=== PATIENT | female | born 1950 | race Caucasian/White ===

== ENCOUNTER 2021-05-18 11:09 | Day surgery (SDC) | payer MEDICARE, BC ==
[2021-05-18] MEDS ORDERED: BUPIVACAINE 0.5% VIAL IJ ONE (11:10)
[2021-05-18] MEDS ORDERED: Depo-Medrol 40 MG/ML IM ONE (11:10)
[2021-05-18] MEDS ORDERED: DIPRIVAN 200 MG/20 ML IV ONE (11:43)
[2021-05-18] MEDS ORDERED: Lactated Ringers 1,000 ML IV ONE (13:17)
--- NOTE | 2021-05-18 13:32 | XRAY ---
Indication: Left greater trochanter bursa injection. Intraoperative fluoroscopy provided for 10 seconds. Single digital spot image submitted for interpretation demonstrates needle tip projecting lateral to the left greater trochanter. Small amount of contrast injected for needle tip placement. Correlate with intraoperative findings/report.
--- NOTE | 2021-05-18 13:32 | XRAY ---
Indication: Right SI joint injection. Intraoperative fluoroscopy provided for 10 seconds. Single lateral digital spot image submitted for interpretation demonstrates posterior needle tip projecting mid sacrum. Correlate with intraoperative findings/report.
--- NOTE | 2021-05-18 13:39 | XRAY ---
7 seconds fluoroscopy time in surgery for injection of the right SI joint.
--- NOTE | 2021-05-18 13:39 | XRAY ---
10 seconds fluoroscopy time in surgery for injection of the greater trochanter of the right hip.
== END 2021-05-18 12:05 | disposition home or self-care (01) ==
LOC: SDC-PAIN 11:09
PROVIDERS: ATTEND Psychiatry & Neurology Pain Medicine
DX: M46.1 Sacroiliitis, not elsewhere classified (principal); M70.61 Trochanteric bursitis, right hip; Z79.899 Other long term (current) drug therapy
CPT/HCPCS: 20610; 27096; 72020; 73501; 77002; 77003; G0260; 99100; J1030; J2704; Q9966

== ENCOUNTER 2021-06-14 12:08 | Emergency (ER) | payer MEDICARE, BC ==
[2021-06-14] MEDS ORDERED: TYLENOL 325 MG PO ONE (12:20)
[2021-06-14 12:22] VITALS: O2SAT 94
[2021-06-14] MEDS ORDERED: TYLENOL 325 MG ONE (12:34)
--- NOTE | 2021-06-14 12:41 | ERPHSYRPT ---
- History of Present Illness Time Seen by Provider: 06/14/21 12:13 Source: patient Exam Limitations: no limitations Patient Subjective Stated Complaint: right hip pain and is a pt with Dr. Ryan for [facility] chronic pain Triage Nursing Assessment: Pt was brought to the ER by her , wilfred swann, rates pain as 10/10, last injection from Dr. Ryan was on the 8th of last month, pt went to a chiropractor a couple of weeks ago and they popped her hip but it continued to hurt, pulses normal, skin n/w/d, doesn't appear to be in any distress Physician History: Patient is a 71-year-old female with a history of chronic SI pain presents to our ED with complaints of progressive worsening right hip pain that has been present for over [address] Ryan pain specialist. She receives injections for SI joint pain. Patient states her right hip is now hurting her and becoming problematic. Patient saw a chiropractor approximately 1 week ago. Patient states chiropractor manipulated her right hip however her pain continues. No injuries. No falls. No fever. No trauma. Pain worse with weightbearing and improved with rest. Patient denies associated chest pain. No shortness of breath. No nausea or vomiting. No diarrhea. No rash. No active back pain. She voices no other complaints concerns at this time. Method of Injury: unknown (Chronic use) Occurred: other (No acute injury reported.) Quality: constant Severity of Pain-Max: moderate Severity of Pain-Current: mild Lower Extremities Pain: hip: right Modifying Factors: Improves With: other (Weightbearing worsens pain.) Associated Symptoms: none Allergies/Adverse Reactions: cimetidine [From Tagamet] Allergy (Verified 06/14/21 12:24) sulfamethoxazole [From Bactrim] Allergy (Verified 06/14/21 12:25) trimethoprim [From Bactrim] Allergy (Verified 06/14/21 12:25) nifedipine [From Procardia] Adverse Reaction (Verified 06/14/21 12:24) Home Medications: Bethanechol Chloride 25 mg PO TID 06/14/21 [History] Buspirone HCl [Buspar] 10 mg PO DAILY 06/14/21 [History] Carvedilol 12.5 mg [Coreg 12.5 mg] 12.5 mg PO BID 06/14/21 [History] Clonidine HCl 0.1 mg [Catapres 0.1 MG] 0.1 mg PO DAILY 06/14/21 [History] Denosumab 60 mg [Prolia 60 mg Injection] 60 mg SQ UD 06/14/21 [History] Esomeprazole Magnesium 20 mg PO DAILY 06/14/21 [History] Gabapentin 600 mg PO TID 06/14/21 [History] Levothyroxine Sodium 125 mcg PO DAILY 06/14/21 [History] Potassium Chloride 10 Meq Tab* [Klor Con 10 MEQ] 10 meq PO DAILY 06/14/21 [History] Spironolactone 25 mg [Aldactone 25 MG] 25 mg PO DAILY 06/14/21 [History] Tramadol HCl 50 mg [Ultram 50 mg] 50 mg PO UD 06/14/21 [History] Travel Risk - International Travel Have you traveled outside of the country in past 3 weeks: No - Coronavirus Screening Are you exhibiting any of the following symptoms?: No Close contact with a COVID-19 positive Pt in past 14-21 Days: No - Vaccine Status Have you recieved a Covid-19 vaccination: Yes [employer] T[employer]: [place] - Review of Systems Constitutional: No Symptoms, No Fever, No Chills Eyes: No Symptoms Ears, Nose, & Throat: No Symptoms Respiratory: No Symptoms, No Cough, No Dyspnea Cardiac: No Symptoms, No Chest Pain, No Edema, No Syncope Abdominal/Gastrointestinal: No Symptoms, No Abdominal Pain, No Nausea, No Vomiting, No Diarrhea Genitourinary Symptoms: No Symptoms, No Dysuria Musculoskeletal: No Symptoms, No Back Pain, No Neck Pain Skin: No Symptoms, No Rash Neurological: No Symptoms, No Dizziness, No Focal Weakness, No Sensory Changes Psychological: No Symptoms Endocrine: No Symptoms Hematologic/Lymphatic: No Symptoms Immunological/Allergic: No Symptoms All Other Systems: Reviewed and Negative - Past Medical History Pertinent Past Medical History: Yes Cardiac History: High Cholesterol, Hypertension Endocrine Medical History: Hypothyroidism - Past Surgical History Past Surgical History: Yes Female Surgical History: Hysterectomy, Tubal Ligation Other Surgical History: neck surgery, lipoma from the colon, back surgery, foot surgery - Social History Smoking Status: Never smoker Exposure to second hand smoke: No Drug Use: none Patient Lives Alone: No - Nursing Vital Signs Nursing Vital Signs: Initial Vital Signs Temperature 97.1 F 06/14/21 12:12 Pulse Rate 62 06/14/21 12:12 Blood Pressure 138/73 06/14/21 12:12 O2 Sat by Pulse Oximetry 94 L 06/14/21 12:12 Pain Scale Pain Intensity 6 - Physical Exam General Appearance: no apparent distress, alert Eyes, Ears, Nose, Throat Exam: moist mucous membranes Neck Exam: non-tender, supple Cardiovascular/Respiratory Exam: chest non-tender, normal breath sounds, regular rate/rhythm, no respiratory distress Gastrointestinal/Abdominal Exam: non-tender, soft, guarding, No tenderness Back Exam: normal inspection, No vertebral tenderness Hips Exam: right: pain, other (Right hip pain upon weightbearing. Overlying soft tissue intact. No cellulitis erythema or obvious tenderness. Pain worse with weightbearing. Extremities neurovascular intact distally. Compartments are soft. Cap refill less than 2 seconds. PT DP pulses palpable, straight leg raise worsens patient's hip pain as well.), left: non-tender, normal inspection, normal range of motion, no evidence of injury Legs Exam: bilateral leg: non-tender, normal inspection, normal range of motion, no evidence of injury Knees Exam: bilateral knee: non-tender, normal inspection, normal range of motion, no evidence of injury Ankle Exam: bilateral ankle: non-tender, normal inspection, normal range of motion, no evidence of injury Foot Exam: bilateral foot: non-tender, normal inspection, normal range of motion, no evidence of injury Neuro/Tendon Exam: normal sensation, normal motor functions, normal tendon functions Mental Status Exam: alert, oriented x 3, cooperative Skin Exam: normal color, warm, dry SpO2 Interpretation: normal SpO2: 94 O2 Delivery: Room Air - Course Nursing assessment & vital signs reviewed: Yes - Radiology Exams Hip X-ray Interpretation: Teleradiologist Report (2 views right hip demonstrates minimal joint space narrowing, right lumbosacral junction facet screw, minimal vascular calcifications. No other bony articular or soft tissue abnormalities.) Ordered Tests: Active Orders 24 hr Category Date Time Status HIP UNI (2V) INCL PEL IF DONE Stat Exams 06/14/21 12:20 Completed Medication Summary Discontinued Medications Generic Name Dose Route Start Last Admin Trade Name Freq PRN Reason Stop Dose Admin Acetaminophen 975 mg 06/14/21 12:20 06/14/21 12:34 Tylenol 325 Mg PO 06/14/21 12:21 975 mg STAT ONE Administration Acetaminophen Confirm 06/14/21 12:34 Tylenol 325 Mg Administered 06/14/21 12:35 Dose 975 mg .ROUTE .STK-MED ONE - Progress Progress: improved Progress Note: Patient reassessed. Pain improved. However patient still has some discomfort. We will add Toradol IM for pain control. X-ray negative for fracture dislocation. Patient has an appointment scheduled with her pain specialist tomorrow. She will follow-up as scheduled. Patient states she is ready for discharge. Will discharge home. Patient voiced other complaints or concerns at this time. Patient states she has a cane at home which she does not use frequently. Patient will start using it at least for the time being until her right hip pain improves. Portions of this note were created with voice recognition technology. There may be grammatical, spelling, punctuation or sound alike errors 06/14/21 13:12 Counseled pt/family regarding: diagnosis, need for follow-up, rad results - Departure Departure Disposition: Home Clinical Impression: Hip pain, right Condition: Stable Critical Care Time: No Referrals: DINAH POTTER [Primary Care Provider] - Additional Instructions: Discharge/Care Plan AMELIE SHORE was seen on 06/14/21 in the Emergency Room. The patient was counseled regarding Diagnosis,Lab results, Imaging studies, need for follow up and when to return to the Emergency Room. Prescriptions given: Discharge Note I have spoken with the patient and/or caregivers. I have explained the patient's condition, diagnosis and treatment plan based on the information available to me at this time. I have answered the patient's and/or caregiver's questions and addressed any concerns. The patient and/or caregivers have as good understanding of the patient's diagnosis, condition and treatment plan as can be expected at this point. The vital signs have been stable. The patient's condition is stable and appropriate for discharge from the emergency department. The patient will pursue further outpatient evaluation with the primary care physician or other designated or consulting physician as outlined in the discharge instructions. The patient and/or caregivers are agreeable to this plan of care and follow-up instructions have been explained in detail. The patient and/or caregivers have received these instruction. The patient/and or caregivers are aware that any significant change in condition or worsening of symptoms should prompt an immediate return to this or the closest emergency department or call 911.
--- NOTE | 2021-06-14 13:03 | XRAY ---
Indication: Right pelvis pain radiating into groin. Comparison: None 2 view right hip demonstrates minimal joint space narrowing, right lumbosacral junction facet screw, and minimal vascular calcifications. No other bony, articular, or soft tissue abnormalities.
[2021-06-14 13:07] VITALS: BP 127/65; PULSE 61
[2021-06-14] MEDS ORDERED: TORAdol 30 mg Injection IM ONE (13:10)
[2021-06-14] MEDS ORDERED: TORAdol 30 mg Injection ONE (13:11)
== END 2021-06-14 13:24 | disposition home or self-care (01) ==
LOC: ED 12:08
DX: M25.551 Pain in right hip (principal); G89.29 Other chronic pain; Z79.899 Other long term (current) drug therapy; F45.42 Pain disorder with related psychological factors
CPT/HCPCS: 73502; 96372; 99284; J1885; A9270-GY

== ENCOUNTER 2021-06-22 14:42 | Day surgery (SDC) | payer MEDICARE, BC ==
[2021-06-22] MEDS ORDERED: BUPIVACAINE 0.5% VIAL IJ ONE (14:43)
[2021-06-22] MEDS ORDERED: Depo-Medrol 40 MG/ML IM ONE (14:43)
[2021-06-22] MEDS ORDERED: DIPRIVAN 200 MG/20 ML IV ONE (17:27)
[2021-06-22] MEDS ORDERED: Lactated Ringers 1,000 ML IV ONE (18:21)
--- NOTE | 2021-06-22 21:21 | XRAY ---
Indication: Right greater trochanteric bursa injection. Intraoperative fluoroscopy provided for 9 seconds. Single digital spot image obtained prone submitted for interpretation demonstrates needle tip lateral to the right greater trochanter. Small amount of contrast injected for needle tip placement. Correlate with intraoperative findings/report.
--- NOTE | 2021-06-22 21:24 | XRAY ---
Indication: Right SI joint injection. Intraoperative fluoroscopy provided for 14 seconds. 2 digital spot image submitted for interpretation demonstrates posterior needle tip projecting over the inferior right SI joint. Correlate with intraoperative findings/report.
--- NOTE | 2021-06-23 09:00 | XRAY ---
9 seconds fluoroscopy time in surgery for injection of the right greater trochanteric bursa of the right hip.
--- NOTE | 2021-06-23 09:11 | XRAY ---
14 seconds fluoroscopy time in surgery for injection of the right SI joint.
== END 2021-06-22 17:55 | disposition home or self-care (01) ==
LOC: SDC-PAIN 14:42
PROVIDERS: ATTEND Psychiatry & Neurology Pain Medicine
DX: M46.1 Sacroiliitis, not elsewhere classified (principal); Z79.899 Other long term (current) drug therapy
CPT/HCPCS: 20610; 27096; 72020; 73501; 77002; G0260; 99100; J1030; J2704; Q9966

== ENCOUNTER 2021-08-24 06:14 | Day surgery (SDC) | payer MEDICARE, BC ==
[2021-08-24] MEDS ORDERED: BUPIVACAINE 0.5% VIAL IJ ONE (06:15)
[2021-08-24] MEDS ORDERED: Depo-Medrol 40 MG/ML IM ONE (06:15)
[2021-08-24] MEDS ORDERED: DIPRIVAN 200 MG/20 ML IV ONE (08:38)
[2021-08-24] MEDS ORDERED: Lactated Ringers 1,000 ML IV ONE (08:49)
--- NOTE | 2021-08-24 10:28 | XRAY ---
Indication: Bilateral SI joint injections. Intraoperative fluoroscopy provided for 17 seconds. 4 digital spot images submitted for interpretation demonstrates posterior needle tip projecting over the inferior left and right SI joint. Correlate with intraoperative findings/report.
--- NOTE | 2021-08-24 10:31 | XRAY ---
Indication: Bilateral greater tuberosity bursa injections. Intraoperative fluoroscopy provided for 24 seconds. 2 digital spot images submitted for interpretation demonstrates needle tip projecting just lateral to the left and right greater trochanters. Small amount of contrast injected for needle tip placement. Correlate with intraoperative findings/report.
--- NOTE | 2021-08-24 10:43 | XRAY ---
17 seconds of fluoroscopy was used in surgery for bilateral SI joint injections.
--- NOTE | 2021-08-24 10:53 | XRAY ---
24 seconds of fluoroscopy was used in surgery for bilateral greater trochanteric bursa hip injections.
== END 2021-08-24 09:10 | disposition home or self-care (01) ==
LOC: SDC-PAIN 06:14
PROVIDERS: ATTEND Psychiatry & Neurology Pain Medicine
DX: M46.1 Sacroiliitis, not elsewhere classified (principal); M70.62 Trochanteric bursitis, left hip; M70.61 Trochanteric bursitis, right hip; I10 Essential (primary) hypertension; Z79.899 Other long term (current) drug therapy
CPT/HCPCS: 20610; 27096; 72202; 73521; 77002; G0260; 99100; J1030; J2704; Q9966

== ENCOUNTER 2022-04-05 11:32 | Day surgery (SDC) | payer MEDICARE, BC ==
[2022-04-05] MEDS ORDERED: Depo-Medrol 40 MG/ML IM ONE (11:33)
[2022-04-05] MEDS ORDERED: Marcaine Mpf 0.5% Vial 30 Ml IJ ONE (11:33)
[2022-04-05] MEDS ORDERED: Lactated Ringers 1,000 ML IV ONE (11:33)
[2022-04-05] MEDS ORDERED: DIPRIVAN 200 MG/20 ML IV ONE (14:17)
--- NOTE | 2022-04-05 16:12 | XRAY ---
Indication: Bilateral SI joint and bilateral greater trochanter bursa injections. Intraoperative fluoroscopy provided for 50 seconds. 6 digital spot image submitted for interpretation demonstrates posterior needle tip projecting over the inferior left and right SI joint. Additional needle tip lateral to the left and right greater trochanters with small amount of contrast injected for needle tip placement. Correlate with intraoperative findings/report.
--- NOTE | 2022-04-05 16:32 | XRAY ---
50 seconds of fluoroscopy was used in surgery for bilateral SI joint injections and bilateral hip greater trochanteric bursa injections.
== END 2022-04-05 14:48 | disposition home or self-care (01) ==
LOC: SDC-PAIN 11:32
PROVIDERS: ATTEND Psychiatry & Neurology Pain Medicine
DX: M46.1 Sacroiliitis, not elsewhere classified (principal); M70.62 Trochanteric bursitis, left hip; M70.61 Trochanteric bursitis, right hip; I10 Essential (primary) hypertension; Z79.899 Other long term (current) drug therapy
CPT/HCPCS: 20610; 27096; 73521; 77002; G0260; 99100; J1030; J2704; Q9966

== ENCOUNTER 2022-07-26 11:40 | Day surgery (SDC) | payer MEDICARE, BC ==
[2022-07-26] MEDS ORDERED: BUPIVACAINE 0.5% VIAL IJ ONE (11:41)
[2022-07-26] MEDS ORDERED: Depo-Medrol 40 MG/ML IM ONE (11:41)
[2022-07-26] MEDS ORDERED: Lactated Ringers 1,000 ML IV ONE (14:32)
--- NOTE | 2022-07-26 15:22 | XRAY ---
Indication: Left SI joint and bilateral greater trochanter bursa injections. Intraoperative fluoroscopy provided for 40 seconds. Single lateral digital spot images submitted for interpretation demonstrates posterior needle tip projecting over the SI joint. 2 additional digital spot images demonstrates needle tip projecting lateral to the left and right greater trochanters with small amount of contrast injected for needle tip placement. Correlate with intraoperative findings/report.
--- NOTE | 2022-07-26 15:24 | XRAY ---
40 seconds fluoroscopy time for injections of the left SI joint and the greater trochanters of both hips.
== END 2022-07-26 14:20 | disposition home or self-care (01) ==
LOC: SDC-PAIN 11:40
PROVIDERS: ATTEND Psychiatry & Neurology Pain Medicine
DX: M46.1 Sacroiliitis, not elsewhere classified (principal); M70.62 Trochanteric bursitis, left hip; M70.61 Trochanteric bursitis, right hip; Z79.899 Other long term (current) drug therapy
CPT/HCPCS: 01992; 20610; 27096; 73521; 77002; 99100; G0260; J1030; Q9966

== ENCOUNTER 2022-07-31 11:30 | Emergency (ER) | payer MEDICARE, BC ==
--- NOTE | 2022-07-31 12:18 | ERPHSYRPT ---
- History of Present Illness Historian: patient Exam Limitations: no limitations Patient Subjective Stated Complaint: pt here for lower back pain that radiates down to right groin area, she has injections for pain last wed. and states has had more pain than normal Triage Nursing Assessment: pt alert, resp easy, face mask in place, skin w/d/p, able to get undressed, moves all ext well Physician History: 72 yo wf w R CVA pain x 5 days. Pt has chronic pain and had multiple injections by Dr. Ryan 6 days ago. Pain is worse w movement, sharp, and 9/10 on scale. Pain radiates to her R buttock and R hip. She denies injury/dysuria/hematuria/fe selena/N/V/D/abdominal pain. Timing/Duration: other (5 days) Activities at Onset: rest Quality: sharpness Abdominal Pain Onset Location: other (R CVA) Pain Radiation: other (Radiates to R buttock and r hip) Severity of Pain-Max: severe Severity of Pain-Current: severe Modifying Factors: Improves With: nothing Associated Symptoms: denies symptoms Previous symptoms: no prior history Allergies/Adverse Reactions: cimetidine [From Tagamet] Allergy (Verified 07/31/22 11:44) sulfamethoxazole [From Bactrim] Allergy (Verified 07/31/22 11:44) trimethoprim [From Bactrim] Allergy (Verified 07/31/22 11:44) nifedipine [From Procardia] Adverse Reaction (Verified 07/31/22 11:44) Home Medications: Bethanechol Chloride 25 mg PO TID 06/14/21 [History] Buspirone HCl [Buspar] 10 mg PO DAILY 06/14/21 [History] Carvedilol 12.5 mg [Coreg 12.5 mg] 12.5 mg PO BID 06/14/21 [History] Clonidine HCl 0.1 mg [Catapres 0.1 MG] 0.1 mg PO DAILY 06/14/21 [History] Denosumab 60 mg [Prolia 60 mg Injection] 60 mg SQ UD 06/14/21 [History] Esomeprazole Magnesium 20 mg PO DAILY 06/14/21 [History] Gabapentin 600 mg PO TID 06/14/21 [History] Levothyroxine Sodium 125 mcg PO DAILY 06/14/21 [History] Potassium Chloride Tab* [Klor Con 10 MEQ] 10 meq PO DAILY 06/14/21 [History] Spironolactone 25 mg [Aldactone 25 MG] 25 mg PO DAILY 06/14/21 [History] Tramadol HCl 50 mg [Ultram 50 mg] 50 mg PO UD 06/14/21 [History] Hx Tetanus, Diphtheria Vaccination/Date Given: No Hx Influenza Vaccination/Date Given: No Hx Pneumococcal Vaccination/Date Given: No Immunizations Up to Date: Yes Travel Risk - International Travel Have you traveled outside of the country in past 3 weeks: No - Coronavirus Screening Are you exhibiting any of the following symptoms?: No - Vaccine Status Have you recieved a Covid-19 vaccination: Yes 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: [facility] - Review of Systems Constitutional: No Symptoms Eyes: No Symptoms Ears, Nose, & Throat: No Symptoms Respiratory: No Symptoms Cardiac: No Symptoms Abdominal/Gastrointestinal: No Symptoms Genitourinary Symptoms: No Symptoms Musculoskeletal: No Symptoms, Arthralgias, Back Pain Skin: No Symptoms Neurological: No Symptoms Psychological: No Symptoms Endocrine: No Symptoms Hematologic/Lymphatic: No Symptoms Immunological/Allergic: No Symptoms - Past Medical History Pertinent Past Medical History: Yes Cardiac History: High Cholesterol, Hypertension Endocrine Medical History: Hypothyroidism - Past Surgical History Past Surgical History: Yes Female Surgical History: Hysterectomy, Tubal Ligation Other Surgical History: neck surgery, lipoma from the colon, back surgery, foot surgery - Social History Smoking Status: Never smoker Exposure to second hand smoke: No Drug Use: none Patient Lives Alone: No - Nursing Vital Signs Nursing Vital Signs: Initial Vital Signs Temperature 96.9 F 07/31/22 11:40 Pulse Rate 81 07/31/22 11:40 Respiratory Rate 16 07/31/22 11:40 Blood Pressure 201/86 07/31/22 11:40 O2 Sat by Pulse Oximetry 98 07/31/22 11:40 Pain Scale Pain Intensity 3 - Physical Exam General Appearance: no apparent distress Eye Exam: PERRL/EOMI Ears, Nose, Throat Exam: normal ENT inspection, TMs normal, pharynx normal, moist mucous membranes Neck Exam: normal inspection, non-tender, supple, full range of motion, No meningismus, No mass, No Brudzinski, No Kernig's, No carotid bruit Respiratory Exam: normal breath sounds, lungs clear, airway intact Cardiovascular Exam: regular rate/rhythm, normal heart sounds, normal peripheral pulses, capillary refill <2 sec, No murmur Gastrointestinal/Abdomen Exam: soft, normal bowel sounds, No tenderness Back Exam: CVA tenderness (Marked R CVA TTP) Extremity Exam: normal inspection, normal range of motion Neurologic Exam: alert, oriented x 3, cooperative, 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, normal mood/affect, sensation nml Skin Exam: normal color, warm, dry, No rash Lymphatic Exam: No adenopathy SpO2 Interpretation: normal SpO2: 98 O2 Delivery: Room Air - Course Nursing assessment & vital signs reviewed: Yes - CT Exams Abdomen/Pelvis CT Interpretation: Discussed w/radiologist (Retrocecal appendix-enlarged 9-10mm wo inflammation) Ordered Tests: Active Orders 24 hr Category Date Time Status ABDOMEN AND PELVIS W/0 CONTRAS [CT] Stat Exams 07/31/22 12:12 Completed AMYLASE Stat Lab 07/31/22 14:35 Completed CBC W DIFF Stat Lab 07/31/22 14:35 Completed CMP Stat Lab 07/31/22 14:35 Completed LIPASE Stat Lab 07/31/22 14:35 Completed Lactic Acid Stat Lab 07/31/22 14:42 Completed UA W/RFX CULTURE Stat Lab 07/31/22 13:31 Completed Medication Summary Discontinued Medications Generic Name Dose Route Start Last Admin Trade Name Freq PRN Reason Stop Dose Admin Fentanyl Citrate 50 mcg 07/31/22 14:34 07/31/22 14:39 Fentanyl Citrate 100 Mcg/2 Ml* Vial IV 07/31/22 14:35 50 mcg STAT ONE Administration Fentanyl Citrate Confirm 07/31/22 14:37 Fentanyl Citrate 100 Mcg/2 Ml* Vial Administered 07/31/22 14:38 Dose 100 mcg .ROUTE .STK-MED ONE Ondansetron HCl 4 mg 07/31/22 14:35 07/31/22 14:38 Ondansetron Hcl 4 Mg/2 Ml Vial IV 07/31/22 14:36 4 mg STAT ONE Administration Ondansetron HCl Confirm 07/31/22 14:36 Ondansetron Hcl 4 Mg/2 Ml Vial Administered 07/31/22 14:37 Dose 4 mg .ROUTE .STK-MED ONE Lab/Rad Data: Laboratory Result Diagrams 07/31/22 14:35 07/31/22 14:35 Laboratory Results 07/31/22 07/31/22 07/31/22 Range/Units 14:42 14:35 14:35 WBC 9.9 (4.0-10.5) x10^3/uL RBC 3.53 L (4.1-5.4) x10^6/uL Hgb 11.5 L (12.0-16.0) g/dL Hct 35.2 (35-47) % MCV 99.7 (78-100) fL MCH 32.6 H (26-32) pg MCHC 32.7 (32-36) g/dL RDW 11.9 (11.5-14.0) % Plt Count 278 (150-450) x10^3/uL MPV 9.1 (7.5-11.0) fL Gran % 63.0 (36.0-66.0) % Immature Gran % (Auto) 0.7 H (0.00-0.4) % Nucleat RBC Rel Count 0.0 (0.00-0.1) % Eos # (Auto) 0.12 (0-0.5) x10^3/uL Immature Gran # (Auto) 0.07 H (0.00-0.03) x10^3u/L Absolute Lymphs (auto) 2.38 (1.0-4.6) x10^3/uL Absolute Monos (auto) 1.03 (0.0-1.3) x10^3/uL Absolute Nucleated RBC 0.00 (0.00-0.01) x10^3u/L Lymphocytes % 24.0 (24.0-44.0) % Monocytes % 10.4 (0.0-12.0) % Eosinophils % 1.2 (0.00-5.0) % Basophils % 0.7 (0.0-0.4) % Absolute Granulocytes 6.23 (1.4-6.9) x10^3/uL Basophils # 0.07 (0-0.4) x10^3/uL Sodium 134 L (137-145) mmol/L Potassium 5.0 (3.5-5.1) mmol/L Chloride 103 (98-107) mmol/L Carbon Dioxide 25 (22-30) mmol/L Anion Gap 10.7 (5-15) MEQ/L BUN 20 H (7-17) mg/dL Creatinine 0.66 (0.52-1.04) mg/dL Estimated GFR > 60.0 ML/MIN Glucose 82 (74-106) mg/dL Lactic Acid 1.7 (0.4-2.0) Calcium 9.3 (8.4-10.2) mg/dL Total Bilirubin 0.70 (0.2-1.3) mg/dL AST 32 (14-36) U/L ALT 19 (0-35) U/L Alkaline Phosphatase 42 (38-126) U/L Serum Total Protein 7.4 (6.3-8.2) g/dL Albumin 4.2 (3.5-5.0) g/dL Amylase 58 (30-110) U/L Lipase 58 (23-300) U/L Urinalys Dipstick Clnc Urine Color (YELLOW) Urine Appearance (CLEAR) Urine pH (5-6) Ur Specific Her[place] (1.005-1.025) POC Urine Protein Conf (Negative) Urine Ketones (NEGATIVE) Urine Nitrite (NEGATIVE) Urine Bilirubin (NEGATIVE) Urine Urobilinogen (0-1) mg/dL Urine Leukocytes (NEGATIVE) Urine WBC (Auto) (0-5) /HPF Urine RBC (Auto) (0-2) /HPF U Epithel Cells (Auto) (FEW) /HPF Urine Bacteria (Auto) (NEGATIVE) /HPF Urine RBC (0-5) Jayce/ul Ur Culture Indicated? Urine Glucose (NEGATIVE) mg/dL 07/31/22 Range/Units 13:31 WBC (4.0-10.5) x10^3/uL RBC (4.1-5.4) x10^6/uL Hgb (12.0-16.0) g/dL Hct (35-47) % MCV (78-100) fL MCH (26-32) pg MCHC (32-36) g/dL RDW (11.5-14.0) % Plt Count (150-450) x10^3/uL MPV (7.5-11.0) fL Gran % (36.0-66.0) % Immature Gran % (Auto) (0.00-0.4) % Nucleat RBC Rel Count (0.00-0.1) % Eos # (Auto) (0-0.5) x10^3/uL Immature Gran # (Auto) (0.00-0.03) x10^3u/L Absolute Lymphs (auto) (1.0-4.6) x10^3/uL Absolute Monos (auto) (0.0-1.3) x10^3/uL Absolute Nucleated RBC (0.00-0.01) x10^3u/L Lymphocytes % (24.0-44.0) % Monocytes % (0.0-12.0) % Eosinophils % (0.00-5.0) % Basophils % (0.0-0.4) % Absolute Granulocytes (1.4-6.9) x10^3/uL Basophils # (0-0.4) x10^3/uL Sodium (137-145) mmol/L Potassium (3.5-5.1) mmol/L Chloride (98-107) mmol/L Carbon Dioxide (22-30) mmol/L Anion Gap (5-15) MEQ/L BUN (7-17) mg/dL Creatinine (0.52-1.04) mg/dL Estimated GFR ML/MIN Glucose (74-106) mg/dL Lactic Acid (0.4-2.0) Calcium (8.4-10.2) mg/dL Total Bilirubin (0.2-1.3) mg/dL AST (14-36) U/L ALT (0-35) U/L Alkaline Phosphatase (38-126) U/L Serum Total Protein (6.3-8.2) g/dL Albumin (3.5-5.0) g/dL Amylase (30-110) U/L Lipase (23-300) U/L Urinalys Dipstick Clnc MAIN LAB Urine Color YELLOW (YELLOW) Urine Appearance CLEAR (CLEAR) Urine pH 7.0 (5-6) Ur Specific Her[place] 1.020 (1.005-1.025) POC Urine Protein Conf NEGATIVE (Negative) Urine Ketones NEGATIVE (NEGATIVE) Urine Nitrite NEGATIVE (NEGATIVE) Urine Bilirubin NEGATIVE (NEGATIVE) Urine Urobilinogen 0.2 (0-1) mg/dL Urine Leukocytes NEGATIVE (NEGATIVE) Urine WBC (Auto) NONE (0-5) /HPF Urine RBC (Auto) NONE (0-2) /HPF U Epithel Cells (Auto) RARE (FEW) /HPF Urine Bacteria (Auto) RARE (NEGATIVE) /HPF Urine RBC NEGATIVE (0-5) Jayce/ul Ur Culture Indicated? NO Urine Glucose NEGATIVE (NEGATIVE) mg/dL - Progress Progress: improved Progress Note: 07/31/22 15:35 IV 50mcg Fentanyl/4mg IV Zofran Dr. Benton saw pt in ER, does not think appendix etiology of pain but would discharge on an antibiotic Counseled pt/family regarding: lab results, diagnosis, rad results - Departure Departure Disposition: Home Clinical Impression: Flank pain Condition: Stable Critical Care Time: No Referrals: DINAH POTTER [Primary Care Provider] - Follow up/PCP as directed Instructions: Chronic Pain (DC) Additional Instructions: Follow up with your family MD Return to ER for increasing pain or temperature greater than 100.5 Prescriptions: Amox Tr/Potass Clav. 875 mg [Augmentin 875-125 Tablet] 875 mg PO BID #14 tablet
--- NOTE | 2022-07-31 12:53 | XRAY ---
Indication: Right lower quadrant pain 5 days. History colonic lipoma. Multiple contiguous images obtained through the abdomen and pelvis without contrast. Comparison: None Lung bases demonstrates minimal bibasilar subsegmental atelectasis/scarring. Heart not enlarged with mitral valve calcifications. Small hiatal hernia. Lower lumbar posterior fusion hardware produces beam artifact limiting these levels. Noncontrasted stomach and bowel loops appear nonobstructed. Retrocecal prominent appendix up to 9-10 mm diameter without periappendiceal stranding. Mild/early appendicitis is not completely excluded. Descending colon demonstrates intact anastomosis. Scattered sigmoid diverticulosis without diverticulitis. No free fluid/air. Right lower kidney demonstrates nonobstructing punctate calculus. 3 mm left mid renal angiomyolipoma. Partial hysterectomy. 1.8 cm left ovary cyst. Remaining liver, gallbladder, pancreas, spleen, adrenal glands, kidneys, ureters, and bladder are unremarkable for noncontrast exam. Mild scattered aortoiliac calcifications without AAA. Osseous structures intact with osteopenia, mild/moderate degenerative spondylosis throughout the thoracolumbar spine, 6-7 mm L3 anterior spondylolisthesis on L4, bilateral L4-L5 posterior fusion hardware, and minimal dextroscoliosis centered at L2. Fatty umbilical hernia with hernia defect at least 3 cm wide. Impression: 1. Beam artifact from L4-L5 fusion hardware. 2. Prominent retrocecal appendix up to 9-10 mm without periappendiceal stranding. Mild/early appendicitis not completely excluded in the right clinical setting. 2. Chronic findings including small hiatal hernia, colonic diverticulosis, nonobstructing right renal punctate calculus, tiny left renal angiomyolipoma, chronic bony findings, and fatty umbilical hernia.
[2022-07-31 14:36] LABS: Bacteria RARE /HPF (NEGATIVE); Epithelial Cells RARE /HPF (FEW)
[2022-07-31] MEDS ORDERED: Zofran 4 MG/2 ML VIAL ONE (14:36)
[2022-07-31 14:37] LABS: Appearance CLEAR (CLEAR); Bilirubin NEGATIVE (NEGATIVE); Dipstick done @ ? MAIN LAB; Glucose NEGATIVE (NEGATIVE); Ketones NEGATIVE (NEGATIVE); Nitrite NEGATIVE (NEGATIVE); Protein,Urine Dip NEGATIVE (Negative); RBC NEGATIVE Ery/ul (0-5); Urobilinogen 0.2 mg/dL (0-1)
[2022-07-31] MEDS ORDERED: SUBLIMAZE 100 MCG/2 ML ONE (14:37)
[2022-07-31 14:38] LABS: Urine Cultured Indicated? NO
[2022-07-31] MEDS: Zofran 4 MG/2 ML VIAL IV ONE (14:38)
[2022-07-31] MEDS: SUBLIMAZE 100 MCG/2 ML IV ONE (14:39)
[2022-07-31 14:43] LABS: Absolute Neutrophil Ct (ANC) 6.23 x10^3/uL (1.4-6.9); Basophil (Absolute #) 0.07 x10^3/uL (0-0.4); Eosinophil % 1.2 % (0.00-5.0); Eosinophil (Absolute #) 0.12 x10^3/uL (0-0.5); Hematocrit 35.2 % (35-47); Hemoglobin 11.5 g/dL (12.0-16.0); Lymphocyte (Absolute #) 2.38 x10^3/uL (1.0-4.6); Mean Cell Volume 99.7 fL (78-100); Mean Corpuscular Hemoglobin 32.6 pg (26-32); Mean Corpuscular Hgb Concent. 32.7 g/dL (32-36); Mean Platelet Volume 9.1 fL (7.5-11.0); Monocyte (Absolute #) 1.03 x10^3/uL (0.0-1.3); Monocytes % 10.4 % (0.0-12.0); Platelet Count 278 x10^3/uL (150-450); Red Blood Count 3.53 x10^6/uL (4.1-5.4); Red Cell Distribution Width 11.9 % (11.5-14.0); White Blood Count 9.9 x10^3/uL (4.0-10.5)
[2022-07-31 14:59] LABS: ALBUMIN 4.2 g/dL (3.5-5.0); ALKALINE PHOSPHATASE 42 U/L (38-126); AMYLASE 58 U/L (30-110); ANION GAP 10.7 MEQ/L (5-15); BLOOD UREA NITROGEN 20 mg/dL (7-17); CHLORIDE 103 mmol/L (98-107); Calcium 9.3 mg/dL (8.4-10.2); Carbon Dioxide 25 mmol/L (22-30); Creatinine 1 0.66 mg/dL (0.52-1.04); EST GLOMERULAR FILTRATION RATE > 60.0 ML/MIN; Glucose 82 mg/dL (74-106); LIPASE 58 U/L (23-300); SGOT/AST 32 U/L (14-36); SGPT/ALT 19 U/L (0-35); SODIUM 134 mmol/L (137-145); Total Protein 7.4 g/dL (6.3-8.2)
[2022-07-31 15:16] VITALS: BP 188/97; PULSE 60
[2022-07-31 15:39] VITALS: O2SAT 98
--- NOTE | 2022-08-01 10:06 | HP ---
HISTORY OF PRESENT ILLNESS: The patient is a 72-year-old female who had some right back to flank area radiating forward to the right abdomen pain since a back injection last Sunday over the past five days. She denies any nausea, vomiting, fever or chills. She denied any bloody stools. She ended up having a CT scan by the emergency room physician that showed an 8 or 9 mm appendix but no evidence but no evidence of any inflammation around it. She had a normal white count. No evidence of any abscesses or acute inflammation. White count was 9.9, hemoglobin 11.5, PLT count 278,000. She only had 63% granulocytes. PAST MEDICAL HISTORY: She had some back problems. She has hypothyroidism. She had some reflux in the past. She has hypertension as well. PAST SURGICAL HISTORY: She had endoscopy in the past. She had back surgery in the past. She had back injections most recently five days ago. Dr. Ryan injected her back. She said she had a hysterectomy. She also had a partial colectomy in the past in [place], [place]. She said they took a small segment of her colon out for benign lipoma is what she said. She has a chronic ventral hernia that is not bothering her that they were following in the past. MEDICATIONS: She had been on tramadol, spironolactone, potassium chloride, levothyroxine, gabapentin, esomeprazole magnesium, Prolia, clonidine, carvedilol, buspirone, bethanechol chloride. ALLERGIES: CIMETIDINE. SULFAMETHOXAZOLE. TRIMETHOPRIM. NIFEDIPINE. FAMILY HISTORY: Negative in regards to this specific problem. SOCIAL HISTORY: No alcohol abuse. REVIEW OF SYSTEMS: She does wear glasses. Fourteen systems reviewed. No chest pain or palpitations. Other systems negative or noncontributory as above and per preadmission questionnaire. PHYSICAL EXAMINATION: GENERAL: No acute distress. HEENT: Sclerae nonicteric. NECK: No JVD. CHEST: Equal excursion, nonlabored breathing. CVS: Regular rate and rhythm. ABDOMEN: Soft. She is a little bit overweight. She mainly has some tenderness on her right back and flank area. She is very soft. No peritoneal signs over the appendix itself. EXTREMITIES: No significant edema. NEURO: Alert, oriented, moving extremities symmetrically. SKIN: Dry. PSYCH: Appropriate mood and affect. IMPRESSION: Right back and flank area aches and pains. It has been going on since she had her back injection so likely musculoskeletal and maybe a little bit of inflammation from her recent injection as this is kind of a burning-type pain. Her appendix is 8 or 9 mm. I feel likely this is chronic. I feel if she had appendicitis for five days she would definitely have a lot more reaction around the appendix and have elevated white count which she does not have. I think she is nontoxic. I do not think her appendix is acute finding. I would have her return and follow up with her pain specialist who injected her back to see what their thoughts are. She understands. Given her 8 or 9 mm appendix, she is a little bit risk of appendicitis down the road in the future. Should she have more pain that is migrating and staying in the front of the abdomen she should return otherwise she could consider elective removal of her appendix down the road and she said she might entertain that if they decide to fix her hernia in [place]. Either way, I do not feel she needs emergent surgical intervention at this point regarding her appendix as it seems her symptoms are related to musculoskeletal from recent back injection. She understands. Again, she is not wanting to have surgery at this time anyway. She agrees to the plan, continue medical management, observation and follow up with her pain doctor. The emergency room was going to send her home on some empiric antibiotics but she does not appear to have acute appendicitis currently. I am seeing this patient for Dr. Iglesias who is marketing production coordinator for our group as I was here doing some outpatient procedures so the office asked if I would check on the patient while I was here. Should she have recurrent aches and pains she could return to the emergency department or follow up with Dr. Iglesias in the office.
== END 2022-07-31 15:50 | disposition home or self-care (01) ==
LOC: ED 11:30
DX: R10.9 Unspecified abdominal pain (principal); E78.5 Hyperlipidemia, unspecified; I10 Essential (primary) hypertension; Z79.899 Other long term (current) drug therapy
CPT/HCPCS: 36415; 74176; 80053; 81015; 82150; 83605; 83690; 85025; 96374; 96375; 99284; J2405; J3010

== ENCOUNTER 2022-09-13 11:39 | Day surgery (SDC) | payer MEDICARE, BC ==
[2022-09-13] MEDS ORDERED: Sodium Chloride 0.9(Preservative Free) 10 ML IJ ONE (11:40)
[2022-09-13] MEDS ORDERED: Depo-Medrol 40 MG/ML IM ONE (11:40)
[2022-09-13] MEDS ORDERED: DIPRIVAN 200 MG/20 ML IV ONE ×2 (14:04→14:19)
[2022-09-13] MEDS ORDERED: Xylocaine-Mpf 2% 5 Ml Vial ONE (14:08)
[2022-09-13] MEDS ORDERED: TORAdol 30 mg Injection ONE (14:19)
[2022-09-13] MEDS ORDERED: BENADRYL 50 MG/ML ONE (14:19)
[2022-09-13] MEDS ORDERED: Lactated Ringers 1,000 ML IV ONE (15:41)
--- NOTE | 2022-09-13 16:48 | XRAY ---
Indication: Right L1-L3 transforaminal STEVE. Intraoperative fluoroscopy provided for 35 seconds. 6 digital spot image submitted for interpretation demonstrates posterior needle tips projecting over the expected right L1 and L2 nerve roots. Small amount of contrast injected for needle tip placement. Correlate with intraoperative findings/report.
--- NOTE | 2022-09-13 16:55 | XRAY ---
35 seconds of fluoroscopy was used in surgery for a right L1-L3 transforaminal STEVE.
== END 2022-09-13 14:40 | disposition home or self-care (01) ==
LOC: SDC-PAIN 11:39
PROVIDERS: ATTEND Psychiatry & Neurology Pain Medicine
DX: M54.16 Radiculopathy, lumbar region (principal); Z79.899 Other long term (current) drug therapy
CPT/HCPCS: 64483; 64484; 72100; 77003; J1030; J1200; J1885; J2704; Q9966

== ENCOUNTER 2022-11-29 08:14 | Day surgery (SDC) | payer MEDICARE, BC ==
[2022-11-29] MEDS ORDERED: BUPIVACAINE 0.5% VIAL IJ ONE (08:15)
[2022-11-29] MEDS ORDERED: Depo-Medrol 40 MG/ML IM ONE (08:15)
[2022-11-29] MEDS ORDERED: DIPRIVAN 200 MG/20 ML IV ONE (10:34)
[2022-11-29] MEDS ORDERED: Lactated Ringers 1,000 ML IV ONE (10:58)
--- NOTE | 2022-11-29 11:53 | XRAY ---
24 seconds of fluoroscopy was used in surgery for a bilateral greater trochanteric bursa injection.
--- NOTE | 2022-11-29 11:58 | XRAY ---
Indication: Bilateral greater trochanter bursa injection. Intraoperative fluoroscopy provided for 24 seconds. 2 digital spot image submitted for interpretation demonstrates needle tip projecting lateral to the left and right greater trochanters. Small amount of contrast injected for both needle tip placement. Correlate with intraoperative findings/report.
== END 2022-11-29 11:05 | disposition home or self-care (01) ==
LOC: SDC-PAIN 08:14
PROVIDERS: ATTEND Psychiatry & Neurology Pain Medicine
DX: M16.0 Bilateral primary osteoarthritis of hip (principal); Z79.899 Other long term (current) drug therapy
CPT/HCPCS: 20610; 73521; 77002; J1030; J2704; Q9966

== ENCOUNTER 2023-01-10 12:58 | Day surgery (SDC) | payer MEDICARE, BC ==
[2023-01-10] MEDS ORDERED: BUPIVACAINE 0.5% VIAL IJ ONE (12:59)
[2023-01-10] MEDS ORDERED: Depo-Medrol 40 MG/ML IM ONE (12:59)
[2023-01-10] MEDS ORDERED: Xylocaine-Mpf 2% 5 Ml Vial ONE (13:46)
[2023-01-10] MEDS ORDERED: DIPRIVAN 200 MG/20 ML IV ONE (13:46)
[2023-01-10] MEDS ORDERED: Lactated Ringers 1,000 ML IV ONE (14:49)
--- NOTE | 2023-01-10 18:31 | XRAY ---
Indication: Bilateral SI joint and bilateral hip injection. Intraoperative fluoroscopy provided for 49 seconds. 7 digital spot image obtained prone submitted for interpretation demonstrates posterior needle tip projecting over the left and right SI joint. Additional needle tip lateral to the left and right femur necks with small amount of contrast injected for both needle tip placement. Correlate with intraoperative findings/report.
--- NOTE | 2023-01-10 19:01 | XRAY ---
49 seconds of fluoroscopy was used in surgery for bilateral SI joint injections and bilateral hip intra-articular injections.
== END 2023-01-10 14:30 | disposition home or self-care (01) ==
LOC: SDC-PAIN 12:58
PROVIDERS: ATTEND Psychiatry & Neurology Pain Medicine
DX: M46.1 Sacroiliitis, not elsewhere classified (principal); M16.0 Bilateral primary osteoarthritis of hip; Z79.899 Other long term (current) drug therapy
CPT/HCPCS: 01992; 20610; 27096; 73522; 77002; 99100; G0260; J1030; J2704; Q9966

== ENCOUNTER 2023-04-18 13:24 | Day surgery (SDC) | payer MEDICARE, BC ==
[2023-04-18] MEDS ORDERED: BUPIVACAINE 0.5% VIAL IJ ONE (13:25)
[2023-04-18] MEDS ORDERED: Depo-Medrol 40 MG/ML IM ONE (13:25)
[2023-04-18] MEDS ORDERED: DIPRIVAN 200 MG/20 ML IV ONE (15:47)
[2023-04-18] MEDS ORDERED: Lactated Ringers 1,000 ML IV ONE (16:03)
--- NOTE | 2023-04-18 16:57 | XRAY ---
Indication: Right shoulder and subacromial bursa injection. Intraoperative fluoroscopy provided for 17 seconds. 2 digital spot image submitted for interpretation demonstrates needle tip projecting over the right glenohumeral joint superiorly. Second needle tip subacromial. Small amount of contrast injected for both needle tip placement. Correlate with intraoperative findings/report.
--- NOTE | 2023-04-18 16:59 | XRAY ---
16 seconds of fluoroscopy was used in surgery for a left shoulder intra-articular and subacromial bursa injection.
--- NOTE | 2023-04-18 16:59 | XRAY ---
17 seconds of fluoroscopy was used in surgery for a right shoulder intra-articular and subacromial bursa injection.
--- NOTE | 2023-04-18 16:59 | XRAY ---
Indication: Left shoulder and subacromial bursa injection. Intraoperative fluoroscopy provided for 16 seconds. 2 digital spot image submitted for interpretation demonstrates needle tip projecting over the left glenohumeral joint superiorly. Second needle tip subacromial. Small amount of contrast injected for both needle tip placement. Correlate with intraoperative findings/report.
== END 2023-04-18 16:18 | disposition home or self-care (01) ==
LOC: SDC-PAIN 13:24
PROVIDERS: ATTEND Psychiatry & Neurology Pain Medicine
DX: M19.012 Primary osteoarthritis, left shoulder (principal); M19.011 Primary osteoarthritis, right shoulder; M75.52 Bursitis of left shoulder; M75.51 Bursitis of right shoulder; Z79.899 Other long term (current) drug therapy
CPT/HCPCS: 20610; 73030; 77002; J1030; J2704; Q9966

== ENCOUNTER 2023-06-27 11:51 | Day surgery (SDC) | payer MEDICARE, BC ==
[2023-06-27] MEDS ORDERED: Depo-Medrol 40 MG/ML IM ONE (11:52)
[2023-06-27] MEDS ORDERED: BUPIVACAINE 0.5% VIAL IJ ONE (11:52)
[2023-06-27] MEDS ORDERED: DIPRIVAN 200 MG/20 ML IV ONE (14:49)
[2023-06-27] MEDS ORDERED: Lactated Ringers 1,000 ML IV ONE (15:10)
--- NOTE | 2023-06-27 17:20 | XRAY ---
48 seconds of fluoroscopy was used in surgery for a bilateral sacroiliac and bilateral greater trochanteric bursa injection.
--- NOTE | 2023-06-28 16:37 | XRAY ---
48 seconds of fluoroscopy was used in surgery for a bilateral sacroiliac joint and bilateral greater trochanteric bursa injection.
== END 2023-06-27 15:25 | disposition home or self-care (01) ==
LOC: SDC-PAIN 11:51
PROVIDERS: ATTEND Psychiatry & Neurology Pain Medicine
DX: M46.1 Sacroiliitis, not elsewhere classified (principal); M70.62 Trochanteric bursitis, left hip; M70.61 Trochanteric bursitis, right hip; Z79.899 Other long term (current) drug therapy
CPT/HCPCS: 01992; 20610; 27096; 73522; 77002; 99100; G0260; J1030; J2704; Q9966

== ENCOUNTER 2023-10-31 06:48 | Day surgery (SDC) | payer MEDICARE, BC ==
[2023-10-31] MEDS ORDERED: BUPIVACAINE 0.5% VIAL IJ ONE (06:49)
[2023-10-31] MEDS ORDERED: Depo-Medrol 40 MG/ML IM ONE (06:49)
[2023-10-31] MEDS ORDERED: Lactated Ringers 1,000 ML IV ONE (08:54)
[2023-10-31] MEDS ORDERED: DIPRIVAN 200 MG/20 ML IV ONE (09:04)
--- NOTE | 2023-10-31 11:32 | XRAY ---
Indication: Left shoulder and subacromial bursa injection. Intraoperative fluoroscopy provided for 18 seconds. 2 digital spot image submitted for interpretation demonstrates needle tip projecting over left glenohumeral joint superiorly. Second needle tip subacromial. Small amount of contrast injected for needle tip placement. Correlate with intraoperative findings/report.
--- NOTE | 2023-10-31 12:06 | XRAY ---
18 seconds of fluoroscopy was used in surgery for a left intra-articular shoulder and subacromial bursa injection.
== END 2023-10-31 09:31 | disposition home or self-care (01) ==
LOC: SDC-PAIN 06:48
PROVIDERS: ATTEND Psychiatry & Neurology Pain Medicine
DX: M19.012 Primary osteoarthritis, left shoulder (principal)
CPT/HCPCS: 20610; 73030; 77002; J1030; J2704; Q9966

== ENCOUNTER 2023-12-12 14:01 | Day surgery (SDC) | payer MEDICARE, BC ==
[2023-12-12] MEDS ORDERED: Depo-Medrol 40 MG/ML IM ONE (14:02)
[2023-12-12] MEDS ORDERED: BUPIVACAINE 0.5% VIAL IJ ONE (14:02)
[2023-12-12] MEDS ORDERED: Lactated Ringers 1,000 ML IV ONE (15:10)
[2023-12-12] MEDS ORDERED: DIPRIVAN 200 MG/20 ML IV ONE (15:41)
--- NOTE | 2023-12-12 19:09 | XRAY ---
Indication: Bilateral SI joint and bilateral greater trochanter bursa injection. Intraoperative fluoroscopy provided for 46 seconds. 6 digital spot image submitted for interpretation demonstrates posterior needle tip projecting over left and right SI joint. Additional needle tip lateral to left/right greater trochanters with small amount of contrast injected for needle tip placement. Correlate with intraoperative findings/report. Incidental incompletely visualized lower lumbar fusion hardware.
--- NOTE | 2023-12-13 08:50 | XRAY ---
46 seconds of fluoroscopy was used in surgery for a bilateral sacroiliac joint and greater trochanteric bursa injection.
== END 2023-12-12 16:12 | disposition home or self-care (01) ==
LOC: SDC-PAIN 14:01
PROVIDERS: ATTEND Psychiatry & Neurology Pain Medicine
DX: M46.1 Sacroiliitis, not elsewhere classified (principal)
CPT/HCPCS: 01992; 20610; 27096; 73521; 77002; 99100; G0260; J1010; J2704; Q9966

== ENCOUNTER 2024-07-24 13:35 | Day surgery (SDC) | payer MEDICARE, BC ==
[2024-07-24] MEDS ORDERED: BUPIVACAINE 0.5% VIAL IJ ONE (13:36)
[2024-07-24] MEDS ORDERED: Depo-Medrol 40 MG/ML IM ONE (13:36)
[2024-07-24] MEDS ORDERED: DIPRIVAN 200 MG/20 ML IV ONE (15:41)
--- NOTE | 2024-07-24 21:52 | XRAY ---
Indication: Right SI joint and bilateral greater trochanter bursa injection. Intraoperative fluoroscopy provided for 33 seconds. 5 digital spot images submitted for interpretation demonstrates needle tips projecting lateral to left and right femur greater trochanters. Additional posterior needle tips project over right SI joint. Small amount of contrast injected for needle tip placement. Correlate with intraoperative findings/report.
--- NOTE | 2024-07-24 21:58 | XRAY ---
33 seconds of fluoroscopy was used in surgery for a right sacroiliac joint and bilateral greater trochanteric bursa injection.
== END 2024-07-24 16:10 | disposition home or self-care (01) ==
LOC: SDC-PAIN 13:35
PROVIDERS: ATTEND Psychiatry & Neurology Pain Medicine
DX: M46.1 Sacroiliitis, not elsewhere classified (principal); M70.62 Trochanteric bursitis, left hip; M70.61 Trochanteric bursitis, right hip
CPT/HCPCS: 01992; 20610; 27096; 73521; 77002; 99100; G0260; J2704; Q9966

== ENCOUNTER 2025-01-07 14:28 | Day surgery (SDC) | payer MEDICARE, BC ==
[2025-01-07] MEDS ORDERED: Depo-Medrol 40 MG/ML IM ONE (14:29)
[2025-01-07] MEDS ORDERED: BUPIVACAINE 0.5% VIAL IJ ONE (14:29)
[2025-01-07] MEDS ORDERED: Lactated Ringers IV ONE (14:29)
[2025-01-07] MEDS ORDERED: LIDOCAINE HCL 1% AMPUL 5 ML IJ ONE (14:29)
--- NOTE | 2025-01-07 19:44 | XRAY ---
Indication: Right shoulder and subacromial bursa injection. Intraoperative fluoroscopy provided for 20 seconds. 2 digital spot image submitted for interpretation demonstrates needle tip projecting over right glenohumeral joint superiorly. Second needle tip subacromial. Small amount of contrast injected for needle tip placement. Correlate with intraoperative findings/report.
--- NOTE | 2025-01-07 19:46 | XRAY ---
20 seconds of fluoroscopy were used in surgery for a right intra-articular shoulder and right subacromial bursa injection.
== END 2025-01-07 17:00 | disposition home or self-care (01) ==
LOC: SDC-PAIN 14:28
PROVIDERS: ATTEND Psychiatry & Neurology Pain Medicine
DX: M19.012 Primary osteoarthritis, left shoulder (principal); M19.011 Primary osteoarthritis, right shoulder
CPT/HCPCS: 20610; 73030; 77002; Q9966

== ENCOUNTER 2025-07-01 15:08 | Day surgery (SDC) | payer MEDICARE, BC ==
[2025-07-01] MEDS ORDERED: methylPREDNISolone acetate IM ONE (15:09)
[2025-07-01] MEDS ORDERED: BUPIVACAINE 0.5% VIAL IJ ONE (15:09)
[2025-07-01] MEDS ORDERED: LIDOCAINE HCL 1% 50 MG/5 ML VL IJ ONE (15:09)
--- NOTE | 2025-07-01 20:09 | XRAY ---
Indication: Right shoulder and subacromial bursa injection. Intraoperative fluoroscopy provided for 23 seconds. 2 digital spot image submitted for interpretation demonstrates needle tip projecting over right glenohumeral joint superiorly. 2nd needle tip subacromial. Small amount of contrast injected for needle tip placement. Correlate with intraoperative findings/report.
--- NOTE | 2025-07-01 20:11 | XRAY ---
23 seconds of fluoroscopy used in surgery for a right intra-articular shoulder injection and right subacromial bursa injection.
== END 2025-07-01 18:20 | disposition home or self-care (01) ==
LOC: SDC-PAIN 15:08
PROVIDERS: ATTEND Psychiatry & Neurology Pain Medicine
DX: M19.011 Primary osteoarthritis, right shoulder (principal)